=== PATIENT | female | born 1980 | race African-American/Black ===

== ENCOUNTER 2016-12-03 07:05 | Emergency (ER) | payer MEDICAID ==
[~2016-12-03] VITALS: Ht 167.6 cm; Wt 81.6 kg
[2016-12-03 08:35] LABS: Basophils # (auto) 0 uL; Basophils % (auto) 0.2 % (0.0-2.0); Eosinophils # (auto) 0.1 uL; Eosinophils % (auto) 1.7 % (0.0-7.0); Hematocrit 34.7 % (36.0-46.0); Hemoglobin 11.5 g/dL (12.2-16.2); Lymphocytes # (auto) 1.3 uL; Lymphocytes % (auto) 17.9 % (10.0-50.0); Mean Corpuscular Hemoglobin 29.1 pg (28.0-32.0); Mean Corpuscular Volume 88.1 fL (80.0-100.0); Mean Platelet Volume 7.8 fL (7.4-10.4); Monocytes # (auto) 0.4 uL; Monocytes % (auto) 5.1 % (0.0-12.0); Neutrophils # (auto) 5.7 uL; Neutrophils % (auto) 75.1 % (37.0-80.0); Platelet Count (auto) 228 10^3/uL (140-450); Red Cell Distribution Width 15.2 % (11.6-16.0); White Blood Cell 7.5 10^3/uL (4.4-10.8)
[2016-12-03 08:54] LABS: Albumin 3.2 g/dL (3.4-5.0); BUN/Creatinine Ratio 10.1; Bilirubin, Total 0.2 mg/dL (0.2-1.0); Calcium 8.5 mg/dL (8.5-10.1); Potassium 3.5 mmol/L (3.5-5.1); Total Protein 7.5 g/dL (6.4-8.2)
[2016-12-03 09:41] VITALS: BP 121/62
[2016-12-03] MEDS ORDERED: ALBUTEROL SULF 2.5 MG/0.5ML(0.5%) NEB SOLN NEB ONE (11:30)
[2016-12-03] MEDS ORDERED: IPRATROPIUM BROM 0.5 MG/2.5ML INH SOL NEB ONE (11:30)
== END 2016-12-03 10:44 | disposition home or self-care (01) ==
LOC: ER 07:08
DX: O26.892 Other specified pregnancy related conditions, second trimester (principal); J45.909 Unspecified asthma, uncomplicated; O99.332 Smoking (tobacco) complicating pregnancy, second trimester; Z3A.20 20 weeks gestation of pregnancy
CPT/HCPCS: 36415; 80053; 85025; 93005; 94640

== ENCOUNTER 2017-01-24 09:10 | Observation (INO) | payer MEDICAID, OTHER | END 2017-01-24 10:25 | disposition home or self-care (01) | DRG 566 | LOC: LDRP 09:10 | PROVIDERS: ADMIT Specialist; ATTEND Specialist | DX: O62.9 Abnormality of forces of labor, unspecified (principal); Z3A.00 Weeks of gestation of pregnancy not specified | CPT/HCPCS: 59025; G0378; 96365; 96366 ==

== ENCOUNTER 2017-03-02 08:30 | Observation (INO) | payer OTHER ==
[2017-03-02 09:54] LABS: Urine Bilirubin Negative (Negative); Urine Blood Negative /uL (Negative); Urine Color Yellow (Yellow); Urine Glucose Normal (Normal); Urine Mucus FEW (None Seen); Urine Nitrite Negative (Negative); Urine RBC 1 /hpf (0 - 4); Urine Squamous Epithelial Cell MOD /hpf (<5); Urine Urobilinogen Normal (Negative); Urine pH 6.5 (5.0-8.0)
[2017-03-02 10:02] LABS: Urine Ketone 1+ (Negative)
[2017-03-02] MEDS ORDERED: LACTATED RINGER'S 1,000 ML IV ONE (10:46)
[2017-03-02] MEDS ORDERED: cefTRIAXone 1GM/50ML D5W 50 ML IV ONE (11:00)
[2017-03-02 11:26] LABS: BUN/Creatinine Ratio 8.2; Potassium 3.6 mmol/L (3.5-5.1)
== END 2017-03-02 13:25 | disposition home or self-care (01) | DRG 566 ==
LOC: LDRP 08:30
PROVIDERS: ADMIT Specialist; ATTEND Specialist
DX: O23.43 Unspecified infection of urinary tract in pregnancy, third trimester (principal); O26.893 Other specified pregnancy related conditions, third trimester; O62.9 Abnormality of forces of labor, unspecified; R10.30 Lower abdominal pain, unspecified; R19.7 Diarrhea, unspecified; Z3A.31 31 weeks gestation of pregnancy
CPT/HCPCS: 36415; 59025; 80048; 81001; 87086; 96360; 96361; G0378; J0696; J7030; 96366

== ENCOUNTER 2017-04-03 16:50 | Observation (INO) | payer OTHER ==
[2017-04-03] MEDS ORDERED: ACETAMINOPHEN 325 MG TAB PO ONE ×2 (17:58→18:00)
[2017-04-03] MEDS ORDERED: ONDANSETRON HCL 4 MG/2 ML VIAL ONE (17:58)
[2017-04-03] MEDS ORDERED: ONDANSETRON HCL 4 MG/2 ML VIAL IV ONE (18:00)
== END 2017-04-03 19:30 | disposition left against medical advice (07) | DRG 566 ==
LOC: EDBD 16:50 → LDRP 16:50
PROVIDERS: ADMIT Specialist; ATTEND Specialist
DX: O21.2 Late vomiting of pregnancy (principal); O26.893 Other specified pregnancy related conditions, third trimester; H53.8 Other visual disturbances; R51 Headache; Z3A.39 39 weeks gestation of pregnancy
CPT/HCPCS: 59025; 81002; G0378; J2405; 96365; 96366

== ENCOUNTER 2017-04-08 09:07 | Inpatient (IN) | payer MEDICAID ==
[2017-04-08 11:15] LABS: Urine Bilirubin Negative (Negative); Urine Blood Negative /uL (Negative); Urine Color Yellow (Yellow); Urine Glucose Normal (Normal); Urine Mucus FEW (None Seen); Urine Nitrite Negative (Negative); Urine RBC 1 /hpf (0 - 4); Urine Squamous Epithelial Cell FEW /hpf (<5)
[2017-04-08 11:16] LABS: Urine Ketone 1+ (Negative)
[2017-04-08] MEDS ORDERED: LACTATED RINGER'S 1,000 ML IV SCH (11:23)
[2017-04-08] MEDS ORDERED: LACT. RINGERS/OXYTOCIN 20UNITS 1,000 ML IV SCH (11:23)
[2017-04-08] MEDS ORDERED: LIDOCAINE 2%HCL (LOCAL ANESTH.) INJ 20ML MDV IJ ONE (11:30)
[2017-04-08] MEDS ORDERED: PENICILLIN G POT 5MIL/D5 50ML 50 ML IV ONE (11:30)
[2017-04-08] MEDS ORDERED: METHYLERGONOVINE MALEATE 0.2 MG/ML AMP IM PRN (11:30)
[2017-04-08] MEDS ORDERED: CARBOPROST TROMETHAMINE 250 MCG/1ML VIAL IM PRN (11:30)
[2017-04-08] MEDS ORDERED: NALBUPHINE HCL 10 MG/1ml INJECTION IV PRN (11:30)
[2017-04-08 12:30] LABS: Basophils # (auto) 0 uL; CONDITION Y; Eosinophils # (auto) 0.1 uL; Eosinophils % (auto) 0.5 % (0.0-7.0); Hematocrit 33.5 % (36.0-46.0); Hemoglobin 11.4 g/dL (12.2-16.2); Lymphocytes # (auto) 1.2 uL; Lymphocytes % (auto) 10.4 % (10.0-50.0); Mean Corpuscular Hemoglobin 30.7 pg (28.0-32.0); Mean Corpuscular Hgb Conc. 33.9 g/dL (32.0-36.0); Mean Corpuscular Volume 90.5 fL (80.0-100.0); Mean Platelet Volume 7.5 fL (7.4-10.4); Monocytes # (auto) 0.7 uL; Monocytes % (auto) 6.2 % (0.0-12.0); Neutrophils # (auto) 9.6 uL; Neutrophils % (auto) 82.9 % (37.0-80.0); Platelet Count (auto) 231 10^3/uL (140-450); Red Cell Distribution Width 13.7 % (11.6-16.0); White Blood Cell 11.6 10^3/uL (4.4-10.8)
[2017-04-08] MEDS ORDERED: TERBUTALINE SULFATE 1 MG/ML 1ML VIAL SC ONE (12:30)
[2017-04-08 12:45] LABS: INR 0.92 (0.9-1.15); Partial Thromboplastin Time 32.3 sec (22.64-33.71)
[2017-04-08 12:48] LABS: BUN/Creatinine Ratio 6.6; Bilirubin, Total 0.4 mg/dL (0.2-1.0); Calcium 8.5 mg/dL (8.5-10.1); Potassium 3.2 mmol/L (3.5-5.1); Total Protein 7.4 g/dL (6.4-8.2)
[2017-04-08] MEDS ORDERED: LIDOCAINE HCL 2 %PF INJ 10ML AMP IJ ONE (15:00)
[2017-04-08] MEDS ORDERED: ePHEDrine SULFATE 50 MG/ML AMP IV ONE ×2 (15:00→16:00)
[2017-04-08] MEDS ORDERED: fentaNYL W ROPIVACAINE 150 ML EPI SCH ×2 (15:00→16:00)
[2017-04-08] MEDS ORDERED: fentaNYL CITRATE 100 MCG/2 ML VL IV ONE ×2 (15:00→16:00)
[2017-04-08] MEDS ORDERED: NALOXONE HCL 0.4 MG/ML VIAL IV ONE ×2 (15:00→16:00)
[2017-04-08] MEDS ORDERED: ePHEDrine SULFATE 50 MG/ML AMP ONE (15:14)
[2017-04-08] MEDS: PENICILLIN G POTASSIUM 2,500,000 UNITS in D5W 5% 50 ML IV SCH ×3 (16:26→23:30)
[2017-04-08] MEDS ORDERED: LIDOCAINE 2%HCL (LOCAL ANESTH.) INJ 20ML MDV ONE (19:30)
[2017-04-08] MEDS ORDERED: RHO (D) IMMUNE GLOBULIN 300 MCG INJ IM ONE (21:15)
[2017-04-08] MEDS ORDERED: ACETAMINOPHEN 325 MG TAB PO PRN (21:15)
[2017-04-08] MEDS: IBUPROFEN 600 MG TAB PO PRN (21:30)
[2017-04-09] MEDS: IBUPROFEN 600 MG TAB PO PRN ×2 (01:41→06:45)
[2017-04-09] MEDS: PENICILLIN G POTASSIUM 2,500,000 UNITS in D5W 5% 50 ML IV SCH (03:30)
[2017-04-09 03:35] VITALS: BP 114/63
[2017-04-09] MEDS: DERMOPLAST 60ML BOTTLE TOP PRN ×3 (05:03→19:05)
[2017-04-09] MEDS: PHISODERM TOP SOLN 240ML BTL TOP PRN ×3 (05:03→19:05)
[2017-04-09] MEDS: WITCH HAZEL-GLYCERIN PAD TOP PRN ×4 (05:03→19:05)
[2017-04-09 08:15] VITALS: BP 126/76
[2017-04-09] MEDS ORDERED: ACETAMINOPHEN/CODEINE#3 (300/30mg) TAB PO ONE (09:15)
[2017-04-09 12:09] VITALS: BP 117/80
[2017-04-09] MEDS: IBUPROFEN 800 MG TAB PO PRN ×2 (12:15→18:41)
[2017-04-09 16:00] VITALS: BP 113/63
[2017-04-09] MEDS ORDERED: DOCUSATE CALCIUM 240 MG CAP PO SCH (17:01)
[2017-04-09 18:56] VITALS: BP 114/59
[2017-04-09 23:30] VITALS: BP 134/71
[2017-04-10] MEDS ORDERED: SIMETHICONE 80 MG CHEWABLE TABLET ONE (00:58)
[2017-04-10] MEDS ORDERED: SIMETHICONE 80 MG CHEWABLE TABLET PO PRN (01:00)
[2017-04-10 03:30] VITALS: BP 118/61
[2017-04-10] MEDS: IBUPROFEN 800 MG TAB PO PRN (03:30)
[2017-04-10 07:00] VITALS: BP 118/78
== END 2017-04-10 09:40 | disposition home or self-care (01) | DRG 560 ==
LOC: OBSVTOIN 09:07 → LDRP 09:07
PROVIDERS: ADMIT Specialist; ATTEND Specialist
PROC: 10E0XZZ Delivery of Products of Conception, External Approach (ICD-10-PCS; principal; 2017-04-08)
PROC: 10907ZC Drainage of Amniotic Fluid, Therapeutic from Products of Conception, Via Natural or Artificial Opening (ICD-10-PCS; 2017-04-08)
PROC: 0HQ9XZZ Repair Perineum Skin, External Approach (ICD-10-PCS; 2017-04-08)
PROC: 3E0S3CZ (ICD-10-PCS; 2017-04-08)
PROC: 00HU33Z Insertion of Infusion Device into Spinal Canal, Percutaneous Approach (ICD-10-PCS; 2017-04-08)
PROC: 30233S1 Transfusion of Nonautologous Globulin into Peripheral Vein, Percutaneous Approach (ICD-10-PCS; 2017-04-09)
DX: O70.0 First degree perineal laceration during delivery (principal); Z37.0 Single live birth; Z3A.39 39 weeks gestation of pregnancy
CPT/HCPCS: 36415; 59025; 59409; 80053; 80307; 81001; 81002; 85025; 85610; 85730; 86592; 86850; 86870; 86900; 86901; 90384; 96361; 96366; 96372; 96374; 96375; J2540; J2590; J3010; J7060

== ENCOUNTER 2017-05-03 09:04 | Emergency (ER) | payer MEDICAID ==
[~2017-05-03] VITALS: Ht 167.6 cm; Wt 68.0 kg
[2017-05-03 09:42] VITALS: BP 156/112
[2017-05-03] MEDS ORDERED: KETOROLAC TROMETH 60MG/2ML VIAL IM ONE (10:00)
== END 2017-05-03 10:13 | disposition home or self-care (01) ==
LOC: ER 09:04
DX: J20.9 Acute bronchitis, unspecified (principal); K64.9 Unspecified hemorrhoids; F17.210 Nicotine dependence, cigarettes, uncomplicated; J45.909 Unspecified asthma, uncomplicated
CPT/HCPCS: 96372; 99283; J1885

== ENCOUNTER 2017-05-11 08:56 | Emergency (ER) | payer MEDICAID ==
[~2017-05-11] VITALS: Ht 167.6 cm; Wt 109.8 kg
[2017-05-11 09:23] VITALS: BP 144/91
[2017-05-11] MEDS ORDERED: cefTRIAXone SOD 1,000 MG VL IM ONE (10:00)
[2017-05-11] MEDS ORDERED: KETOROLAC TROMETH 60MG/2ML VIAL IM ONE (10:00)
== END 2017-05-11 10:29 | disposition home or self-care (01) ==
LOC: ER 08:56
DX: J20.9 Acute bronchitis, unspecified (principal); J02.9 Acute pharyngitis, unspecified; F17.210 Nicotine dependence, cigarettes, uncomplicated; J45.909 Unspecified asthma, uncomplicated
CPT/HCPCS: 71020; 96372; 99284; J0696; J1885

== ENCOUNTER 2018-02-13 07:17 | Emergency (ER) | payer MEDICAID, OTHER ==
[~2018-02-13] VITALS: Ht 167.6 cm; Wt 81.6 kg
[2018-02-13 07:22] VITALS: BP 124/83
== END 2018-02-13 07:57 | disposition home or self-care (01) ==
LOC: ER 07:21
DX: J02.9 Acute pharyngitis, unspecified (principal); J45.909 Unspecified asthma, uncomplicated; F17.210 Nicotine dependence, cigarettes, uncomplicated